=== PATIENT | female | born 1985 | race Hispanic/Latino ===

== ENCOUNTER 2018-04-01 13:05 | Inpatient (IN) | payer BC, OTHER ==
[2018-04-01 13:26] VITALS: BMI 22.2
[2018-04-01] MEDS ORDERED: Fentanyl/Bupivacaine HCl 250 ML EPI ONE (13:28)
[2018-04-01] MEDS ORDERED: Oxytocin 30 UNIT 30 UNITS/500 ML BAG IV ONE ×2 (13:38→13:40)
[2018-04-01] MEDS ORDERED: OXYTOCIN/0.9 % NS 20 UNIT/1,000 ML BAG IV SCH ×2 (13:45→23:24)
[2018-04-01] MEDS: Lactated Ringer's 1,000 ML IV SCH ×2 (13:50→14:00)
--- NOTE | 2018-04-01 13:54 | OBHP ---
Datetime: 04/01/2018 13:30 IP Adm Impression: Term, intrauterine ; No Active Labor; Intact Membranes IP Admit Plan: Admit to unit; Initiate labor protocol; Initiate labor augmentation protocol Admit Comment, IP Provider: [id number] IUP at 37+w c/o CTX since last night. Became more regular t charmaine after being examined at the offcie 11am (documented 3cm). No SROM. No VB. +FM care: Dr Max Hdz - since 13w POBGYNH: x 2 / Casas's palsy PMH: denies PSH: denies Allergies: Azithromax/Amoxicillin PSoH: denies smoking ETOH drugs A: IUP at 37w latent phase of labor painful CTX PLAN: spoke to PMD: admit to L_D; pain managment, labor, augmentation, medications, delivery and p ostpartm discussed. Her questions answered. Start Pitocin augmentation Pelvic Type - PN: Adequate Extremities - PN: Normal Abdomen - PN: Normal Back - PN: Normal Breast - PN: Not Done Lungs - PN: Normal Heart - PN: Normal Thyroid - PN: Normal Neurologic - PN: Normal HEENT - PN: Normal General - PN: Normal Presentation-Admit: Vertex FHR - Baseline A Provider: 130 Membranes, Provider: Intact Contraction Comments Provider: + Pool Provider: Negative IP Hx Assessment: The History has been Reviewed and is Current EGA AdmitDate IP: 37.3 IP Chief Complaint: Uterine contractions NICHD Variability Prov Fetus A: Moderate 6-25bpm NICHD Accel Fetus A IP Provider: [id number] FHR Category Provider Fetus A: Category I NICHD Decel Fetus A IP Provider: None Dilatation, Provider: 3-4 Effacement, Provider: 75 Station, Provider: -2 Genitourinary Exam: Normal DTRs - PN: Normal
[2018-04-01 14:11] LABS: BASO % 0.4 % (0.0-2.0); EOS # 0.1 K/uL (0.0-0.7); EOS % 0.6 % (0.0-4.0); HEMOGLOBIN 11.8 g/dL (12.0-16.0); LYMPH # 1.4 K/uL (1.0-4.3); LYMPH % 16.3 % (20.0-40.0); MEAN CELL VOLUME 92.1 fl (81.0-99.0); MEAN CORPUSCULAR HEMOGLOBIN 30.4 pg (27.0-31.0); MEAN PLATELET VOLUME 8.9 fl (7.2-11.7); MONO # 0.5 K/uL (0.0-0.8); MONO % 5.7 % (0.0-10.0); NEUT # 6.4 K/uL (1.8-7.0); NRBC % 0.2 % (0.0-0.0); RBC 3.89 Mil/uL (3.80-5.20); RED CELL DISTRIBUTION WIDTH 13.6 % (11.5-14.5); WHITE BLOOD COUNT 8.3 K/uL (4.8-10.8)
[2018-04-01] MEDS ORDERED: Lidocaine 1% Inj (20ml) ONE (14:30)
--- NOTE | 2018-04-01 18:09 | OBADHP ---
Datetime: 04/01/2018 17:44 Presentation-Admit: Vertex FHR - Baseline A Provider: 140 Amniotic Fluid Color, Provider: Clear Membranes, Provider: Ruptured Contraction Comments Provider: Q2-3 min Gestation - Est Wks by US: 37.3 Vital Signs Provider: Reviewed; Within Normal Limits NICHD Variability Prov Fetus A: Moderate 6-25bpm NICHD Accel Fetus A IP Provider: 15X15 FHR Category Provider Fetus A: Category I NICHD Decel Fetus A IP Provider: None Dilatation, Provider: 7 Effacement, Provider: 100 Station, Provider: 0 Datetime: 04/01/2018 13:30 Admit Comment, IP Provider: [id number] IUP at 37+w c/o CTX since last night. Became more regular t charmaine after being examined at the offcie 11am (documented 4cm). No SROM. No VB. +FM care: Dr Max Hdz - since 13w POBGYNH: x 2 / Casas's palsy PMH: denies PSH: denies Allergies: Azithromax/Amoxicillin PSoH: denies smoking ETOH drugs A: IUP at 37w latent phase of labor painful CTX PLAN: spoke to PMD: admit to L_D; pain managment, labor, augmentation, medications, delivery and p ostpartm discussed. Her questions answered. Start Pitocin augmentation Pelvic Type - PN: Adequate Extremities - PN: Normal Abdomen - PN: Normal Back - PN: Normal Breast - PN: Not Done Lungs - PN: Normal Heart - PN: Normal Thyroid - PN: Normal Neurologic - PN: Normal HEENT - PN: Normal General - PN: Normal Pool Provider: Negative IP Hx Assessment: The History has been Reviewed and is Current IP Chief Complaint: Uterine contractions Genitourinary Exam: Normal DTRs - PN: Normal EGA AdmitDate IP: 37.3 IP Adm Impression: Term, intrauterine ; No Active Labor; Intact Membranes IP Admit Plan: Admit to unit; Initiate labor protocol; Initiate labor augmentation protocol
--- NOTE | 2018-04-01 18:52 | OBDS ---
DELIVERY PERSONNEL Delivery Doctor: Cathryn Hdz MD Scrub Nurse: Beatriz Farrell Distance Education Teacher: Chelsi Salgado RN Anesthesiologist: Deja Nava MD MATERNAL INFORMATION Delivery Anesthesia: Epidural Medications in Delivery: Pitocin 30 units @ 999ml/hr Estimated Blood Loss (ml): 200 Placenta Cultured: No Maternal Complications: None Provider Comments: pt was fully dilated and pushing. atruatmic, spotnaenous dleiveyr of head, nuchal crod x 2 reduced. atraumatic, spontaneoud delivery of anterior follwoed by posteiror shoudler follow ed by delivery of body. both oral and nasal passage of yomaira baby were bulb suctioned. umbilical cord w as clamped adn cut. baby hadned to mother on adomen. cord blood collected adn sent x 2. Spontaneous d elvery of intact placenta with membarnes. fundus fimr. First degree perineal laceration noted adn re paired with 2-0 chromic .good hemostais, no complications. live male apgars 9,9 weight of 7lbs 3 ounces ebl 200 ml no complications LABOR SUMMARY EDC: 04/19/2018 00:00 No. Babies in Womb: 1 Attempted: No Labor Anesthesia: Epidural LABOR INFORMATION Reason for Induction: Not Applicable Onset of Labor: 04/01/2018 11:00 Complete Dilatation: 04/01/2018 18:26 Oxytocin: N/A Group B Beta Strep: Negative MEMBRANES Membranes Rupture Method: Artificial Rupture of Membranes: 04/01/2018 17:40 Length of Rupture (hrs): 0.88 Amniotic Fluid Color: Clear Amniotic Fluid Amount: Moderate Amniotic Fluid Odor: Normal STAGES OF LABOR Stage 1 hrs: 7 Stage 1 min: 26 Stage 2 hrs: 0 Stage 2 min: 7 Stage 3 hrs: 0 Stage 3 min: 10 Total Time in Labor hrs: 7 Total Time in Labor min: 43 VAGINAL DELIVERY Episiotomy: None Laceration Extension: First Degree Laceration Type: Perineal Initial Vag Sponge Count: 5 Final Vag Sponge Count: 5 Initial Vag Sharps Count: 1 Final Vag Sharps Count: 1 Sponge Count Correct: Yes Sharps Count Correct: Yes BABY A INFORMATION Delivery Date/Time: 04/01/2018 18:33 Method of Delivery: Vaginal Born in Route : No : N/A Forceps: N/A Vacuum Extraction: N/A Shoulder Dystocia : No SHOULDER DYSTOCIA BABY A Infant Delivery Date/Time: 04/01/2018 18:33 PRESENTATION/POSITION BABY A Presentation: Cephalic Cephalic Presentation: Vertex Breech Presentation: N/A PLACENTA INFORMATION BABY A Placenta Delivery Time : 04/01/2018 18:43 Placenta Method of Delivery: Spontaneous Placenta Status: Delivered SCORES BABY A Heart Rate 1 min: >100 bpm Resp Effort 1 min: Good Cry Reflex Irritability 1 min: Cough or Sneeze or Pulls Away Muscle Tone 1 min: Active Motion Color 1 min: Body [place], Extremities Blue Resuscitation Effort 1 min: Tactile Stimulation SCORE 1 MIN: 9 Heart Rate 5 min: >100 bpm Resp Effort 5 min: Good Cry Reflex Irritability 5 min: Cough or Sneeze or Pulls Away Muscle Tone 5 min: Active Motion Color 5 min: Body [place], Extremities Blue Resuscitation Effort 5 min: Tactile Stimulation SCORE 5 MIN: 9 INFORMATION BABY A Gestational Age at Delivery: 37.0 Gestational Status: Term Outcome : Liveborn Condition : Stable Infant Sex: Male IDENTIFICATION/MEDS BABY A ID Band Number: [id number] ID Band Location: Left Leg; Left Arm WEIGHT/LENGTH BABY A Infant Birthweight (gms): 3270 Weight (lb): 7 Infant Weight (oz): 3 CORD INFORMATION BABY A No. Cord Vessels: 2 Nuchal Cord : Around Neck x2, Loose Nuchal Cord Other: n/a Cord Blood Taken: N/A Infant Suction: None ASSESSMENT BABY A Complications: Multiple Variable Decels Physical Findings at Delivery: Within Normal Limits Infant Respirations: Appears Normal National Account Executive/ALS Called : No Infant Care By: Marky/Mayra Browning Transferred To: Remains with Mother
[2018-04-01] MEDS ORDERED: Oxycodone/Acetaminophen 5/325 mg Tab PO PRN ×4 (18:54→23:24)
[2018-04-01] MEDS ORDERED: Benzocaine/Menthol SPRAY TOP PRN ×2 (18:54→23:24)
[2018-04-01 19:31] VITALS: O2SAT 100
--- NOTE | 2018-04-02 06:12 | OBPPN ---
Datetime: 04/02/2018 06:09 PP Pain Prov: Within normal limits PP Nausea Prov: Denies PP Flatus Prov: Yes PP Breasts Prov: Normal PP Heart Prov: Normal PP Lungs Prov: Normal PP Abdomen/Uterus Prov: Normal PP Lochia Prov: Normal PP Vulva/Perineum Prov: Normal PP CVA Tenderness Prov: Normal PP Extremities Prov: Normal PP C/S Incision Prov: Not Applicable PP Progress Prov: Normal PP Impression Prov: Normal progression PP Plan Prov: Continue present management Vital Signs Provider PP: Reviewed; Within Normal Limits
[2018-04-02 06:33] LABS: BASO % 0.4 % (0.0-2.0); EOS # 0.1 K/uL (0.0-0.7); EOS % 0.9 % (0.0-4.0); HEMOGLOBIN 10.4 g/dL (12.0-16.0); LYMPH # 1.8 K/uL (1.0-4.3); LYMPH % 14.1 % (20.0-40.0); MEAN CELL VOLUME 90.1 fl (81.0-99.0); MEAN CORPUSCULAR HEMOGLOBIN 29.5 pg (27.0-31.0); MEAN CORPUSCULAR HGB CONC 32.8 g/dL (33.0-37.0); MEAN PLATELET VOLUME 8.9 fl (7.2-11.7); MONO % 7.7 % (0.0-10.0); NEUT # 9.9 K/uL (1.8-7.0); NEUT % 76.9 % (50.0-75.0); RBC 3.52 Mil/uL (3.80-5.20); RED CELL DISTRIBUTION WIDTH 13.6 % (11.5-14.5); WHITE BLOOD COUNT 12.8 K/uL (4.8-10.8)
[2018-04-02] MEDS ORDERED: Multivitamin With Minerals Tab PO SCH (09:00)
[2018-04-02] MEDS: Multivitamin With Minerals Tab PO SCH (19:24)
[2018-04-03] MEDS: Multivitamin With Minerals Tab PO SCH (10:54)
[2018-04-03 16:16] VITALS: BP 126/77; PULSE 67; RESP 20; TEMP 98.4
== END 2018-04-03 12:07 | disposition home or self-care (01) | DRG 807 ==
LOC: H.EROB2 13:05 → H.L&D 13:39 → H.OB/GYN 22:49
PROVIDERS: ADMIT Obstetrics & Gynecology; ATTEND Obstetrics & Gynecology
PROC: 10E0XZZ Delivery of Products of Conception, External Approach (ICD-10-PCS; principal; 2018-04-01)
PROC: 0HQ9XZZ Repair Perineum Skin, External Approach (ICD-10-PCS; 2018-04-01)
PROC: 4A1HXCZ Monitoring of Products of Conception, Cardiac Rate, External Approach (ICD-10-PCS; 2018-04-01)
DX: O76 Abnormality in fetal heart rate and rhythm complicating labor and delivery (principal); Z37.0 Single live birth; O70.0 First degree perineal laceration during delivery; O69.81X0 Labor and delivery complicated by cord around neck, without compression, not applicable or unspecified; Z3A.37 37 weeks gestation of pregnancy